=== PATIENT | female | born 1985 | race Caucasian/White ===

== ENCOUNTER → 2021-06-07 13:11 | Outpatient (CLI) | payer OTHER, SELFPAY ==
--- NOTE | 2021-06-07 13:13 | DI.MG.S_ITS ---
BILATERAL DIGITAL DIAGNOSTIC MAMMOGRAM 3D/2D: 06/07/2021 CLINICAL: Left breast pain. Comparison is made to exam dated: 03/12/2021 mammogram - [facility]. The tissue of both breasts is heterogeneously dense. This may lower the sensitivity of mammography. No significant masses, calcifications, or other findings are seen in either breast. Specifically, no finding to explain the patient's pain. IMPRESSION: INCOMPLETE: NEEDS ADDITIONAL IMAGING EVALUATION There is no abnormality seen in the left breast to correspond with the pain at 7 o'clock in the posterior depth. Ultrasound is recommended for full evaluation of this area. This was performed immediately following this exam. This exam was interpreted at Station ID: [id number]. NOTE: For mammograms, a report in lay terms will be sent to the patient. Approximately 15% of breast malignancies will not be visualized mammographically. In the management of a palpable breast mass, a negative mammogram must not discourage biopsy of a clinically suspicious lesion. Electronically Signed By: Clotilde vargas/:06/07/2021 13:59:06 ACR BI-RADS Category 0: Incomplete [id number]
--- NOTE | 2021-06-07 13:13 | DI.US.S_ITS ---
ULTRASOUND OF LEFT BREAST: 06/07/2021 CLINICAL: Focal left breast pain. Comparison is made to exams dated: 06/07/2021 mammogram - [facility] and 03/12/2021 mammogram - [facility]. Ultrasound of the left breast was performed. Vora scale images of the real-time examination were reviewed. No significant abnormalities were seen sonographically in the left breast. Specifically, no finding to explain the patient's pain. IMPRESSION: NEGATIVE There is no sonographic correlate to the patient's pain and no evidence of malignancy. Screening mammography beginning at age 40 is recommended. Findings and recommendations were conveyed to the patient at time of exam. This exam was interpreted at Station ID: [id number]. Electronically Signed By: Clotilde vargas/:06/07/2021 14:54:15 letter sent: Normal Exam Ultrasound BI-RADS: 1 Negative
== END ==
PROVIDERS: Referring Provider Obstetrics & Gynecology; Visit Provider Obstetrics & Gynecology
DX: N64.4 Mastodynia (principal); Z80.3 Family history of malignant neoplasm of breast; R92.2 Inconclusive mammogram
CPT/HCPCS: 76642; 77066; G0279

== ENCOUNTER 2022-05-24 07:53 | Observation (INO) | payer OTHER, SELFPAY ==
[2022-05-24] VITALS (16 sets, daily range): BP systolic 122–164; BP diastolic 64–93; PULSE 75–120; RESP 9–20; TEMP 36.3–36.9; O2SAT 94–100; BMI 41.0
--- NOTE | 2022-05-24 | PATH_ITS ---
[facility] Accession Number: [id number] . 01 Material submitted: . endometrium - ENDOMETRIAL CURETTAGE . 01 Clinical history: . BLEEDING X3 WEEKS, UTERINE BLEEDING LIGHTEDADED, DISORIENTED . 01 Diagnosis: Endometrium, Curettings: Fragmented and collapsing dyssynchronous endometrium with associated breakdown changes. No atypical hyperplasia and no malignancy identified. MRV 05/28/2022 1520 Local . 01 Electronically signed: . Aleksandra Negrete MD, Pathologist NPI- [id number] . 01 Gross description: . ENDOMETRIAL CURETTAGE: Received in formalin are minute fragments of mucoid and hemorrhagic material measuring 2.5 x 2.5 x 0.4 cm in aggregate. Submitted in toto in 2 cassettes. /HANNAH 05/27/2022 1936 Local . 01 Pathologist provided ICD-10: N84.0 . 01 CPT . 847271 Performed at: 01 [facility] [address] [place] [address], [place], [place] [id number] MD Victor M Ag MD Phone: [phone]
--- NOTE | 2022-05-24 08:09 | ED.FEMALEGU ---
HPI - Female Genitourinary General Chief complaint: Vaginal Bleeding Stated complaint: uterine bleeding, lightheaded, disoriented Time Seen by Provider: 05/24/22 08:06 History of Present Illness HPI Narrative: 36-year-old female former smoker with recent heavy painless menstrual cycles presents with a chief complaint of very heavy bleeding over the past 24 hours, stating this morning she has overflow own her menstrual cup and soaked through an overnight pad and feels dizzy, weak and lightheaded. She has no pain maybe occasional cramping. She denies any fever or chills. She has no chest pain or shortness of breath. She becomes dizzy upon standing with heart rate jumps into the 120s. She has been followed by local Ob and there is plan for hysteroscopy, D&C and biopsy but they wanted to try a course of medroxyprogesterone 1st. She was intolerant of this and stop taking it a few days ago. She states she started having irregular menstrual cycles over the summer and they become increasingly long. Related Data Previous Rx's Medication Instructions Recorded medroxyprogesterone 10 mg tablet 10 mg PO DAILY Abnormal uterine 05/06/22 bleeding #30 tabs Allergies Allergy/AdvReac Type Severity Reaction Status Date / Time sulfamethoxazole Allergy Intermediate hives Verified 05/21/21 10:25 [From Bactrim] trimethoprim [From Bactrim] Allergy Intermediate hives Verified 05/21/21 10:25 Review of Systems Review of Systems Narrative: GENERAL: Denies chills, fatigue, malaise, fever, sweats. HEENT: Denies sinus pain, ear pain, sore throat, difficulty swallowing, dizziness. RESPIRATORY: Denies dyspnea, cough, wheezing, hemoptysis, sputum. CARDIOVASCULAR: Denies chest pain, palpitations, orthopnea, edema, GASTROINTESTINAL: Denies nausea, vomiting, abdominal pain, diarrhea, constipation, melena. : See HPI MUSCULOSKELETAL: denies weakness, joint pain, or bony pain SKIN: Denies rash, skin lesions, or other NEUROLOGIC: Denies weakness, headache, numbness, change in speech, confusion, seizures, incoordination. PSYCHIATRIC: No concerning psychosocial issues. 12 point review of systems is negative except for those stated above Patient History Medical History (Updated 05/24/22 @ 12:59 by Phyllis Skinner MD) Depression Exam Narrative Exam Narrative: GENERAL: [36] year old patient appears stated age. Well-developed patient, in mild distress. HEAD: Atraumatic. Normocephalic. EYES: Pupils equal round and reactive. Extraocular motions intact. No scleral icterus. No injection or drainage. ENT: Nose without bleeding, purulent drainage. Throat without erythema, tonsillar hypertrophy or exudate. Airway patent. NECK: Trachea midline. Non tender CARDIOVASCULAR: Regular rate and rhythm without murmurs, gallops, or rubs. RESPIRATORY: Clear to auscultation. Breath sounds equal bilaterally. No wheezes, rales, or rhonchi. GASTROINTESTINAL: Abdomen soft, non-tender, nondistended. EXTREMITIES: No edema or joint tenderness. BACK: Nontender without deformity or crepitance. No flank tenderness. NEURO: AOx3. SKIN: No rash or erythema of visible areas Initial Vital Signs Initial Vital Signs: Vital Signs Temperature 98.4 F 05/24/22 08:10 Pulse Rate 96 H 05/24/22 08:10 Respiratory Rate 18 05/24/22 08:10 Blood Pressure 140/82 05/24/22 08:10 Pulse Oximetry 100 05/24/22 08:10 Oxygen Delivery Method 05/24/22 08:10 Course Orders Ordered: ED Orders 05/24/22 08:15 Complete Blood Count AUTO DIFF Stat Comprehensive Metabolic Panel Stat Test Serum,Qual Stat Type and Screen Stat 05/24/22 08:31 Urinalysis and Microscopic Stat 05/24/22 09:02 US pelvic complete Stat 05/24/22 10:36 Hemoglobin and Hematocrit Stat 05/24/22 12:39 COVID19 -Nasal RAPID/Pre-Proc Stat Lactated Ringer's (Lactated Ringers) 1,000 mls @ 100 mls/hr IV CONT PALLAVI Last Admin: 05/24/22 13:19 Dose: 100 mls/hr Documented By: KATLIN Discontinued Medications Tranexamic Acid 1,000 mg/ (Sodium Chloride) 100 mls @ 200 mls/hr IV NOW ONE Stop: 05/24/22 12:30 Last Infusion: 05/24/22 13:12 Dose: 0 mls/hr Documented By: Admin: 05/24/22 12:24 Dose: 200 mls/hr Documented By: PILY Methylergonovine Maleate (Methylergonovine 0.2 Mg/Ml Vial) 0.2 mg IM NOW ONE Stop: 05/24/22 12:02 Last Admin: 05/24/22 12:23 Dose: 0.2 mg Documented By: PILY Vital Signs Vital signs: Vital Signs - 8 hr 05/24/22 08:10 05/24/22 08:33 05/24/22 08:11 Temperature 98.4 F Pulse Rate 96 H 100 H Pulse Rate [Orthostatic Lying] 96 H Pulse Rate [Orthostatic Standing] 120 H Respiratory Rate 18 Blood Pressure 140/82 Pulse Oximetry 100 99 Oxygen Delivery Method Room Air 05/24/22 08:15 05/24/22 08:15 05/24/22 08:36 Temperature Pulse Rate 90 Pulse Rate [Orthostatic Lying] Pulse Rate [Orthostatic Standing] Respiratory Rate 16 Blood Pressure 140/82 139/87 Pulse Oximetry 100 Oxygen Delivery Method 05/24/22 08:36 05/24/22 09:00 05/24/22 09:00 Temperature Pulse Rate 84 78 Pulse Rate [Orthostatic Lying] Pulse Rate [Orthostatic Standing] Respiratory Rate 15 Blood Pressure 140/82 Pulse Oximetry 98 100 Oxygen Delivery Method 05/24/22 09:30 05/24/22 09:30 05/24/22 10:00 Temperature Pulse Rate 75 Pulse Rate [Orthostatic Lying] Pulse Rate [Orthostatic Standing] Respiratory Rate 15 Blood Pressure 132/79 143/64 H Pulse Oximetry 99 Oxygen Delivery Method 05/24/22 10:00 Temperature Pulse Rate 77 Pulse Rate [Orthostatic Lying] Pulse Rate [Orthostatic Standing] Respiratory Rate 17 Blood Pressure Pulse Oximetry 100 Oxygen Delivery Method MDM - Female Genitourinary Lab Data Result diagrams: 05/24/22 10:36 05/24/22 08:15 Labs: Lab Results 05/24/22 05/24/22 05/24/22 Range/Units 08:15 08:15 08:15 WBC 7.4 (4.5-11.0) X10^3/uL RBC 3.60 L (4.0-5.2) X10^6/uL Hgb 8.2 L (12.0-16.0) g/dL Hct 25.5 L (36-46) % MCV 70.9 L (80-100) fL MCH 22.7 L (26-34) PG MCHC 32.0 (30-36) % RDW 15.3 H (11.6-14.8) % Plt Count 385 (150-400) X10^3/uL Neut % (Auto) 68.1 (50-75) % Lymph % (Auto) 23.8 L (25-40) % [place] % (Auto) 6.6 (3-14) % Eos % (Auto) 1.0 L (2-4) % Baso % (Auto) 0.5 (0-2) % Neut # (Auto) 5100 (2270-1589) /uL Lymph # (Auto) 1800 (3080-9878) /uL [place] # (Auto) 500 (0-900) /uL Eos # (Auto) 100 (0-450) /uL Baso # (Auto) 0 (0-100) /uL Sodium 137 (137-145) mmol/L Potassium 3.6 (3.4-5.1) mmol/L Chloride 103 (98-107) mmol/L Carbon Dioxide 26 (22-32) mmol/L BUN 13 (7-17) mg/dL Creatinine 0.75 (0.52-1.04) mg/dL Estimated GFR > 60 (>60) mL/min BUN/Creatinine Ratio 17.3 (6-22) Glucose 102 H (70-100) mg/dL Calcium 8.7 (8.4-10.2) mg/dL Total Bilirubin 0.2 (0.2-1.3) mg/dL AST 16 (14-36) IU/L ALT 16 (<35) IU/L Alkaline Phosphatase 104 (38-126) U/L Total Protein 7.6 (6.3-8.2) g/dL Albumin 4.1 (3.5-5.0) g/dL Globulin 3.5 (1.7-4.1) g/dL Albumin/Globulin Ratio 1.2 (1.0-2.8) Serum , Qual (Negative) Urine Color Urine Appearance Urine pH (4.5-8.0) Ur Specific [place] (1.000-1.035) Urine Protein (Negative) Urine Glucose (UA) (Negative) g/dL Urine Ketones (NEGATIVE) Urine Occult Blood (Negative) Urine Nitrate (Negative) Urine Bilirubin (NEGATIVE) Urine Urobilinogen (0.2) E.U./dL Ur Leukocyte Esterase (NEGATIVE) Urine RBC (0-5/HPF) Urine WBC (0-5/HPF) Ur Squamous Epith Cells (0-5/HPF) Urine Bacteria (None) Ur Culture Indicated? Blood Type B Positive Antibody Screen Negative 05/24/22 05/24/22 05/24/22 Range/Units 08:15 08:31 10:36 WBC (4.5-11.0) X10^3/uL RBC (4.0-5.2) X10^6/uL Hgb 8.0 L (12.0-16.0) g/dL Hct 24.8 L (36-46) % MCV (80-100) fL MCH (26-34) PG MCHC (30-36) % RDW (11.6-14.8) % Plt Count (150-400) X10^3/uL Neut % (Auto) (50-75) % Lymph % (Auto) (25-40) % [place] % (Auto) (3-14) % Eos % (Auto) (2-4) % Baso % (Auto) (0-2) % Neut # (Auto) (2981-7650) /uL Lymph # (Auto) (4116-1852) /uL [place] # (Auto) (0-900) /uL Eos # (Auto) (0-450) /uL Baso # (Auto) (0-100) /uL Sodium (137-145) mmol/L Potassium (3.4-5.1) mmol/L Chloride (98-107) mmol/L Carbon Dioxide (22-32) mmol/L BUN (7-17) mg/dL Creatinine (0.52-1.04) mg/dL Estimated GFR (>60) mL/min BUN/Creatinine Ratio (6-22) Glucose (70-100) mg/dL Calcium (8.4-10.2) mg/dL Total Bilirubin (0.2-1.3) mg/dL AST (14-36) IU/L ALT (<35) IU/L Alkaline Phosphatase (38-126) U/L Total Protein (6.3-8.2) g/dL Albumin (3.5-5.0) g/dL Globulin (1.7-4.1) g/dL Albumin/Globulin Ratio (1.0-2.8) Serum , Qual Negative (Negative) Urine Color Yellow Urine Appearance Clear Urine pH 5.5 (4.5-8.0) Ur Specific [place] >=1.030 H (1.000-1.035) Urine Protein 1+ H (Negative) Urine Glucose (UA) Negative (Negative) g/dL Urine Ketones Negative (NEGATIVE) Urine Occult Blood 3+ H (Negative) Urine Nitrate Negative (Negative) Urine Bilirubin Negative (NEGATIVE) Urine Urobilinogen 0.2 (0.2) E.U./dL Ur Leukocyte Esterase Negative (NEGATIVE) Urine RBC 30-100/hpf H (0-5/HPF) Urine WBC None seen (0-5/HPF) Ur Squamous Epith Cells 1-5 /hpf (0-5/HPF) Urine Bacteria None seen (None) Ur Culture Indicated? 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 Allergy/Adv: sulfamethoxazole, trimethoprim (More??) Close Pelvis Ultrasound (Signed) Hair Bethea - 05/24/22 Mammogram Diagnostic (Signed) Clotilde Cool - 06/07/21 Breast Ultrasound (Signed) Clotilde Cool - 06/07/21 [place] [address] Ultrasound Report Signed Patient: Kiara Roach MR#: [id number] : 1985 Acct:[id number] Age/Sex: 36 / F Date of Service: 05/24/22 Loc: ED Accession Number: [id number] ?? Procedure: US pelvic complete Ordering Provider: Shaheen Munguia D.O. PROCEDURE:? US PELVIC COMPLETE ? INDICATIONS:? HEAVY BLEEDING ? TECHNIQUE:? Real-time scanning was performed of the pelvic organs, with image documentation.? Additional endovaginal scanning was necessary due to incomplete visualization of the adnexal and endometrial structures by transabdominal scanning.? ? COMPARISON:? None. ? FINDINGS:? ?? Uterus:? Uterus is retroverted and normal in size at 8.1 x 4.9 x 4.8 cm. The myometrium is heterogeneous.? Globular appearance.? The endometrium measures 11 mm combined thickness.? Fluid is within the endometrial canal.? Endometrium is heterogeneous in appearance. ? Ovaries:? Right ovary measures 4.3 x 3 x 2.1 cm, with a calculated ovarian volume of 14 cc.? The small ovarian follicles are present.? Blood flow seen in the right ovary. ? At the right adnexa, there is incidental note of a right adnexal vein thrombus measuring 1.4 x 0.8 x 0.7 cm. ? Left ovary is not seen.? ? Other:? Bilateral pelvic veins are prominent.? Right pelvic vein measures 1.5 cm in diameter.? Left pelvic vein measures 1.5 cm in diameter.? Pelvic fluid is within normal limits. ? ? IMPRESSION:? 1. Heterogeneous endometrium measures 11 mm in thickness.? ? 2. Lobular heterogeneous appearance of the retroverted uterus.? This suggests uterine adenomyosis. ? 3. Incidental note of a right adnexal vein thrombus measuring 1.4 cm. ? 4. Right ovary is within normal limits.? The left ovary is not seen.? ? Pelvic MRI with IV contrast could be considered for further evaluation. ? We strive to produce accurate, complete, and clear reports of imaging services. To assist us in improving patient care, this report was composed using standard report templates and voice recognition software. Therefore, it may contain abnormal punctuation, insertions and/or omissions. Occasional wrong-word or sound-alike substitutions may occur. Though we review the report and make efforts to correct it, we do recommend that the report be read carefully in proper context to recognize any text inaccuracies. ? ? Dictated by: Hair Bethea M.D. on 05/24/2022 at 10:09 ? ? Approved by: Hair Bethea M.D. on 05/24/2022 at 10:15 ? MDM Narrative Medical decision making narrative: Patient with increasing vaginal bleeding and symptomatic anemia. Patient will be seen at the bedside by OB Gyne (Dr. Skinner) and likely take to the OR for D and C Discharge Plan Departure Patient Disposition: Admitted as Observation Clinical Impression: Abnormal vaginal bleeding Admit Date/Time: 05/24/22 12:42 Admit Provider: Phyllis Skinner
[2022-05-24 08:40] LABS: Add Manual Diff / Slide Review NO; Basophils Absolute Auto 0 /uL (0-100); Basophils Percent Auto 0.5 % (0-2); Eosinophils Absolute Auto 100 /uL (0-450); Hematocrit 25.5 % (36-46); Hemoglobin 8.2 g/dL (12.0-16.0); Lymphocytes Absolute Auto 1800 /uL (1100-4500); Lymphocytes Percent Auto 23.8 % (25-40); Mean Corpuscular Hemoglobin 22.7 PG (26-34); Mean Corpuscular Volume 70.9 fL (80-100); Monocytes Absolute Auto 500 /uL (0-900); Monocytes Percent Auto 6.6 % (3-14); Neutrophils Absolute Auto 5100 /uL (1500-7000); Neutrophils Percent Auto 68.1 % (50-75); Platelet Count 385 X10^3/uL (150-400); Red Cell Distribution Width 15.3 % (11.6-14.8); White Blood Cell Count 7.4 X10^3/uL (4.5-11.0)
[2022-05-24 08:53] LABS: Alanine Aminotransferase 16 IU/L (<35); Albumin 4.1 g/dL (3.5-5.0); Albumin Globulin Ratio 1.2 (1.0-2.8); Alkaline Phosphatase 104 U/L (38-126); Aspartate Aminotransferase 16 IU/L (14-36); BUN Creatinine Ratio 17.3 (6-22); Bilirubin Total 0.2 mg/dL (0.2-1.3); Blood Urea Nitrogen 13 mg/dL (7-17); Calcium 8.7 mg/dL (8.4-10.2); Carbon Dioxide 26 mmol/L (22-32); Chloride 103 mmol/L (98-107); Estimated Glomerular Filt Rate > 60 mL/min (>60); Globulin 3.5 g/dL (1.7-4.1); Glucose 102 mg/dL (70-100); HEMOLYSIS < 15 (0-50); Potassium 3.6 mmol/L (3.4-5.1); Sodium 137 mmol/L (137-145); Total Protein 7.6 g/dL (6.3-8.2)
[2022-05-24 08:54] LABS: Appearance Urine UA CLEAR; Bilirubin Urine UA NEGATIVE (NEGATIVE); Color Urine UA YELLOW; Glucose Urine UA NEGATIVE (Negative); Ketones Urine UA NEGATIVE (NEGATIVE); Leukocyte Esterase Urine UA NEGATIVE (NEGATIVE); Nitrite Urine UA NEGATIVE (Negative); Occult Blood Urine UA 3+ (Negative); Protein Urine UA 1+ (Negative); Specific Gravity Urine UA >=1.030 (1.000-1.035); Urobilinogen Urine UA 0.2 E.U./dL (0.2)
--- NOTE | 2022-05-24 09:02 | DI.US.S_ITS ---
PROCEDURE: US PELVIC COMPLETE INDICATIONS: HEAVY BLEEDING TECHNIQUE: Real-time scanning was performed of the pelvic organs, with image documentation. Additional endovaginal scanning was necessary due to incomplete visualization of the adnexal and endometrial structures by transabdominal scanning. COMPARISON: None. FINDINGS: Uterus: Uterus is retroverted and normal in size at 8.1 x 4.9 x 4.8 cm. The myometrium is heterogeneous. Globular appearance. The endometrium measures 11 mm combined thickness. Fluid is within the endometrial canal. Endometrium is heterogeneous in appearance. Ovaries: Right ovary measures 4.3 x 3 x 2.1 cm, with a calculated ovarian volume of 14 cc. The small ovarian follicles are present. Blood flow seen in the right ovary. At the right adnexa, there is incidental note of a right adnexal vein thrombus measuring 1.4 x 0.8 x 0.7 cm. Left ovary is not seen. Other: Bilateral pelvic veins are prominent. Right pelvic vein measures 1.5 cm in diameter. Left pelvic vein measures 1.5 cm in diameter. Pelvic fluid is within normal limits. IMPRESSION: 1. Heterogeneous endometrium measures 11 mm in thickness. 2. Lobular heterogeneous appearance of the retroverted uterus. This suggests uterine adenomyosis. 3. Incidental note of a right adnexal vein thrombus measuring 1.4 cm. 4. Right ovary is within normal limits. The left ovary is not seen. Pelvic MRI with IV contrast could be considered for further evaluation. We strive to produce accurate, complete, and clear reports of imaging services. To assist us in improving patient care, this report was composed using standard report templates and voice recognition software. Therefore, it may contain abnormal punctuation, insertions and/or omissions. Occasional wrong-word or sound-alike substitutions may occur. Though we review the report and make efforts to correct it, we do recommend that the report be read carefully in proper context to recognize any text inaccuracies. Dictated by: Hair Bethea M.D. on 05/24/2022 at 10:09 Approved by: Hair Bethea M.D. on 05/24/2022 at 10:15
[2022-05-24 09:26] LABS: pH Urine UA 5.5 (4.5-8.0)
[2022-05-24 10:47] LABS: Pregnancy Test Serum,Qual Negative (Negative)
[2022-05-24 10:49] LABS: Hematocrit 24.8 % (36-46)
[2022-05-24 11:49] LABS: Bacteria Urine None Seen; Culture Indicated Urine Cult Not Indicated; RBC Urine 30-100/HPF (0-5/HPF); Squamous Epithelial Cell Urine 1-5 /HPF (0-5/HPF); WBC Urine None Seen (0-5/HPF)
[2022-05-24] MEDS: METHYLERGONOVINE 0.2 MG/ML VIAL IM (12:23)
[2022-05-24] MEDS: TRANEXAMIC ACID 1,000 MG in SODIUM CHLORIDE 0.9% 100 ML 200 MG IV (12:24)
--- NOTE | 2022-05-24 12:54 | PM.HP.1 ---
History of Present Illness History of Present Illness Date Patient Seen: 05/24/22 Time Patient Seen: 12:54 Chief complaint: uterine bleeding, lightheaded, disoriented Narrative: Patient is a 36-year-old 2 para 2001 who presented to the emergency department with bright red vaginal bleeding. She was seen by Dr. Man and was placed on progesterone. Patient was taking 10 mg once a day for 10 days. She did not quite take the full course, as she did not like how that made her feel. She was getting on the OR schedule for a D&C hysteroscopy and possible ablation. She would like to proceed with this today. Hematocrit on admission was 25.7. It dropped to 24.6. She continues to bleed heavily vaginally. Patient History Medical History (Updated 05/24/22 @ 12:59 by Phyllis Skinner MD) Depression Family & Social History Safety & Behavioral: Feels Safe in Current Yes Environment Been Physically Hurt or No Threatened By a Person Tobacco & Substance use: Smoking Status Former smoker alcohol intake frequency a few times a month Substance Use Type does not use Meds Home Medications and Allergies Home Medications Medication Instructions Recorded Confirmed Type medroxyprogesterone 10 mg tablet 10 mg PO DAILY Abnormal uterine 05/06/22 05/24/22 Rx bleeding #30 tabs ferrous sulfate 324 mg (65 mg 324 mg PO QMWF 05/24/22 05/24/22 History iron) tablet,delayed release fluoxetine 20 mg capsule 20 mg PO DAILY 05/24/22 05/24/22 History Allergies Allergy/AdvReac Type Severity Reaction Status Date / Time sulfamethoxazole Allergy Intermediate hives Verified 05/24/22 14:00 [From Bactrim] trimethoprim [From Bactrim] Allergy Intermediate hives Verified 05/24/22 14:00 Exam Vital Signs (past 8 hours): - 05/24/22 08:10 05/24/22 08:33 05/24/22 08:11 Temperature 98.4 F Pulse Rate 96 H 100 H Pulse Rate [Orthostatic Lying] 96 H Pulse Rate [Orthostatic Standing] 120 H Respiratory Rate 18 Blood Pressure 140/82 Pulse Oximetry 100 99 Oxygen Delivery Method Room Air 05/24/22 08:15 05/24/22 08:15 05/24/22 08:36 Temperature Pulse Rate 90 Pulse Rate [Orthostatic Lying] Pulse Rate [Orthostatic Standing] Respiratory Rate 16 Blood Pressure 140/82 139/87 Pulse Oximetry 100 Oxygen Delivery Method 05/24/22 08:36 05/24/22 09:00 05/24/22 09:00 Temperature Pulse Rate 84 78 Pulse Rate [Orthostatic Lying] Pulse Rate [Orthostatic Standing] Respiratory Rate 15 Blood Pressure 140/82 Pulse Oximetry 98 100 Oxygen Delivery Method 05/24/22 09:30 05/24/22 09:30 05/24/22 10:00 Temperature Pulse Rate 75 Pulse Rate [Orthostatic Lying] Pulse Rate [Orthostatic Standing] Respiratory Rate 15 Blood Pressure 132/79 143/64 H Pulse Oximetry 99 Oxygen Delivery Method 05/24/22 10:00 05/24/22 12:44 05/24/22 12:44 Temperature Pulse Rate 77 90 Pulse Rate [Orthostatic Lying] Pulse Rate [Orthostatic Standing] Respiratory Rate 17 Blood Pressure 164/91 H Pulse Oximetry 100 Oxygen Delivery Method Oxygen Delivery Method Room Air Narrative Exam Narrative: HEENT: No thyromegaly, no anterior cervical or supraclavicular lymphadenopathy. Lungs:Clear to auscultation bilaterally, no wheezes. Cardiovascular: Regular rate and rhythm, no murmurs, rubs, or gallops. Abdomen: No scars. No hepatosplenomegaly. No masses palpable. External genitalia: Normal Vagina: Normal. Menstrual cup in place. Cervix: Normal Bimanual exam: 8 Week size uterus. Mobile. No adnexal masses or tenderness. Extremities: No edema Objective Labs Result Diagrams: 05/24/22 10:36 05/24/22 08:15 Labs: Laboratory Results - last 24 hr 05/24/22 05/24/22 05/24/22 08:15 08:15 08:15 WBC 7.4 RBC 3.60 L Hgb 8.2 L Hct 25.5 L MCV 70.9 L MCH 22.7 L MCHC 32.0 RDW 15.3 H Plt Count 385 Neut % (Auto) 68.1 Lymph % (Auto) 23.8 L [place] % (Auto) 6.6 Eos % (Auto) 1.0 L Baso % (Auto) 0.5 Neut # (Auto) 5100 Lymph # (Auto) 1800 [place] # (Auto) 500 Eos # (Auto) 100 Baso # (Auto) 0 Sodium 137 Potassium 3.6 Chloride 103 Carbon Dioxide 26 BUN 13 Creatinine 0.75 Estimated GFR > 60 BUN/Creatinine Ratio 17.3 Glucose 102 H Calcium 8.7 Total Bilirubin 0.2 AST 16 ALT 16 Alkaline Phosphatase 104 Total Protein 7.6 Albumin 4.1 Globulin 3.5 Albumin/Globulin Ratio 1.2 Serum , Qual Urine Color Urine Appearance Urine pH Ur Specific [place] Urine Protein Urine Glucose (UA) Urine Ketones Urine Occult Blood Urine Nitrate Urine Bilirubin Urine Urobilinogen Ur Leukocyte Esterase Urine RBC Urine WBC Ur Squamous Epith Cells Urine Bacteria Ur Culture Indicated? Blood Type B Positive Antibody Screen Negative 05/24/22 05/24/22 05/24/22 08:15 08:31 10:36 WBC RBC Hgb 8.0 L Hct 24.8 L MCV MCH MCHC RDW Plt Count Neut % (Auto) Lymph % (Auto) [place] % (Auto) Eos % (Auto) Baso % (Auto) Neut # (Auto) Lymph # (Auto) [place] # (Auto) Eos # (Auto) Baso # (Auto) Sodium Potassium Chloride Carbon Dioxide BUN Creatinine Estimated GFR BUN/Creatinine Ratio Glucose Calcium Total Bilirubin AST ALT Alkaline Phosphatase Total Protein Albumin Globulin Albumin/Globulin Ratio Serum , Qual Negative Urine Color Yellow Urine Appearance Clear Urine pH 5.5 Ur Specific [place] >=1.030 H Urine Protein 1+ H Urine Glucose (UA) Negative Urine Ketones Negative Urine Occult Blood 3+ H Urine Nitrate Negative Urine Bilirubin Negative Urine Urobilinogen 0.2 Ur Leukocyte Esterase Negative Urine RBC 30-100/hpf H Urine WBC None seen Ur Squamous Epith Cells 1-5 /hpf Urine Bacteria None seen Ur Culture Indicated? Cult not indicated Blood Type Antibody Screen Assessment & Plan Assessment & Plan narrative: Assessment: 36-year-old 2 para 2 with menorrhagia and significant anemia Plan: D&C hysteroscopy with NovaSure endometrial ablation The risks, benefits, and alternatives to the procedure were explained to the patient. The risks including bleeding, infection, and uterine perforation. She understands these risks and agrees to proceed. A full par Q was held and consent form was signed. COVID-19 COVID-19 status: Negative Result date/Date tested (Pos, Neg/Pending): 05/24/22 Time Spent With Patient Time with patient: 30 to 49 minutes with 50% spent counseling/coordinating care Critical Care time: I spent a total of [] minutes of critical care time on this patient's care today; this time is exclusive of procedural time.
--- NOTE | 2022-05-24 12:58 | PM.PREOP ---
Pre-operative Note COVID-19 COVID-19 status: Negative Result date/Date tested (Pos, Neg/Pending): 05/24/22 Criteria for continued procedure: Deterioration of the patient's condition or overall health Interval Note History & Physical reviewed/Exam performed by Physician: Yes Changes to H&P: No H&P completed within 30 days and has changed as indicated here:: 05/24/22
[2022-05-24] MEDS: LACTATED RINGERS 1,000 ML 100 ML IV (13:19)
[2022-05-24 13:33] LABS: COVID19 -Nasal RAPID Negative (Negative)
--- NOTE | 2022-05-24 14:33 | SUR.OPER ---
Lithotomy on padded OR bed, head on pillow, arms secured on padded arm boards at <90 degrees abduction. Legs secured in padded yellow fins stirrups.
--- NOTE | 2022-05-24 14:53 | PM.GYNOP.1 ---
Operative Date/Time/Diagnoses Date of procedure: 05/24/22 Time of procedure: 14:53 Pre-op diagnosis: Menorrhagia Severe anemia Failed outpatient hormonal therapy Post-op diagnosis: same Procedure & Clinicians Procedure: Procedures Operation Date: 05/24/22 13:40 Actual Procedure Side Surgeon p Hysteroscopy D&C Phyllis Skinner MD Indications: Menorrhagia Severe anemia Failed outpatient hormonal therapy Surgeon: Phyllis Skinner Anesthesia Type: General (LMA) Operative Notes Findings: 8 week size anteverted uterus Very thickened endometrial lining Fallopian tube ostia not observed due to thickened lining Closure Type: not applicable Specimen(s): endometrial curettings Estimated blood loss (mL): 50 Blood products transfused: none Procedure in detail: After informed consent was obtained, the patient was taken to the operating room where she was placed in the dorsal supine position. After adequate LMA general anesthesia was achieved, she was placed in the dorsal lithotomy position. The menstrual cup was removed from the vagina. She was then prepped and draped in the usual sterile fashion. A time-out was performed. A bivalve speculum was placed into the vagina. A single-tooth tenaculum was placed on the anterior lip of the cervix. The cervical os was sequentially dilated until the hysteroscope could pass easily into the endometrial cavity. Initial inspection with the hysteroscope revealed a very thickened endometrial lining. The fallopian tube ostia could not be observed. The hysteroscope was removed. Sharp curettage was performed yielding a large amount of endometrial curettings. The uterus was measured from the internal os to the fundus and measured 5 cm. This was set on the NovaSure catheter and the generator. NovaSure catheter passed easily into the endometrial cavity and was opened. The with of the uterus was 4.2 cm. This indicated a power of 116 w. The cervix was capped, the cavity assessment was performed and passed. The cycle was initiated and lasted 52 seconds. The NovaSure catheter was closed and removed from the uterus. The single-tooth tenaculum was removed from the anterior lip of the cervix. The bivalve speculum was removed from the vagina. Sponge, lap, and instrument counts were correct x2. The patient tolerated the procedure well, and was taken to PACU in stable condition. Complications: none Post-operative Condition: stable Disposition: PACU Plan for aftercare: Home after recovery
== END 2022-05-24 15:30 | disposition home or self-care (01) ==
LOC: ED 12:40 → AC 12:44
PROVIDERS: Admitting Provider Obstetrics & Gynecology; Emergency Provider Emergency Medicine; Referring Provider Emergency Medicine; Visit Provider Obstetrics & Gynecology
PROC: 0UDB8ZZ Extraction of Endometrium, Via Natural or Artificial Opening Endoscopic (ICD-10-PCS; CPT 58558; principal; 2022-05-24 13:40)
DX: N93.9 Abnormal uterine and vaginal bleeding, unspecified (principal); F32.A Depression, unspecified; D64.9 Anemia, unspecified; Z20.822 Contact with and (suspected) exposure to COVID-19
CPT/HCPCS: 58563; 36415; 76830; 76856; 80053; 81001; 84703; 85014; 85018; 85025; 86850; 86900; 86901; 87635; 96361; 96365; 96372; 99218; 99284; C9803; G0378; J1100; J1885; J2210; J2250; J2405; J2704; J3010

== ENCOUNTER 2022-09-18 08:08 | Day surgery (SDC) | payer OTHER, SELFPAY ==
[2022-09-16 08:10] VITALS: BMI 43.2
[2022-09-18] VITALS (8 sets, daily range): BP systolic 131–155; BP diastolic 75–100; PULSE 70–97; RESP 13–17; TEMP 36.7–37.3; O2SAT 90–100; BMI 43.2
--- NOTE | 2022-09-18 | PATH_ITS ---
[facility] Accession Number: [id number] No. of containers..01 Tissue . 01 Material submitted: . uterus - UTERUS, BILATERAL TUBES . 01 Clinical history: . [facility] *OPB* . 01 Diagnosis: Uterus and Bilateral Fallopian Tubes, Supracervical Hysterectomy and Bilateral Salpingectomy: Weakly proliferative endometrium with no diagnostic abnormality. Myometrium with no diagnostic abnormality. Bilateral fimbriated fallopian tubes with simple benign paratubal cysts. No evidence of neoplasm. [facility] 09/23/2022 1708 Local . 01 Electronically signed: . Rakesh Wesley MD, PhD, Pathologist NPI- [id number] . 01 Gross description: . Received in formalin labeled uterus, tubes is a 67 gram, 9.5 x 9.0 x 3.5 cm aggregate of multiple fragmented portions of uterus and separate bilateral fallopian tubes. The cervix is not grossly identified. The intact portions of serosa are pink-fofana, smooth and glistening. The endometrium is difficult to identify due to the fragmented nature of the specimen. There are two separate surfaces which are pink-fofana and roughened, possibly representing endometrium. Sectioning of this area reveals that the endometrium ranges up to 0.2 cm thick. The myometrium reveals a uniform pink-fofana cut surface throughout. There are no nodules grossly identified. The tubes are not designated as to right or left. Both tubes are fimbriated and measure 5.3 cm and 5.7 cm in length x up to 0.7 cm in diameter. Both tubes are remarkable for paratubal cysts, ranging up to 1.5 cm. The tubes are slightly congested and convoluted. Sectioning of both tubes reveals a stellate lumen. Boiler Control Room Operator sections are submitted as follows: . A1-A2: Endomyometrium. A3: Perkins fallopian tube. A4: Remaining fallopian tube. ([id number]) /[facility] 09/19/2022 1855 Local . 01 Pathologist provided ICD-10: N93.9 . 01 CPT . 971029 Specimen Comment: A courtesy copy of this report has been sent to [phone] Performed at: 01 [facility] [address] [place] [address] [facility], [place], [place] [id number] MD Victor M Ag MD Phone: [phone]
[2022-09-18 08:37] LABS: COVID19 -Nasal RAPID Negative (Negative)
[2022-09-18] MEDS: SCOPOLAMINE 1 PATCH TOP (09:30)
[2022-09-18] MEDS: LACTATED RINGERS 1,000 ML 42 ML IV ×2 (09:31→13:40)
--- NOTE | 2022-09-18 11:58 | PM.PREOP ---
Pre-operative Note COVID-19 Criteria for continued procedure: Non-surgical alternatives not available or appropriate per current SOC Interval Note History & Physical reviewed/Exam performed by Physician: Yes Changes to H&P: No H&P completed within 30 days and has changed as indicated here:: 09/10/22
[2022-09-18] MEDS: CEFAZOLIN 2 GM/100 ML PREMIX 100 ML IV (12:00)
[2022-09-18] MEDS: CEFAZOLIN VIAL 1 GM in SODIUM CHLORIDE 0.9% 100 ML IV (12:00)
[2022-09-18] MEDS: ACETAMINOPHEN IV 1,000 MG/100 ML VIAL 400 MG IV (12:10)
--- NOTE | 2022-09-18 12:45 | SUR.OPER ---
Lithotomy on padded OR bed, head on pillow, arms secured on padded arm boards at <90 degrees abduction. Legs secured in padded yellow fins stirrups. Bed extenders placed on both sides of bed to accomodate arms
--- NOTE | 2022-09-18 12:47 | SUR.OPER ---
Lithotomy on padded OR bed. Tome Pad Positioner under torso. Head on pillow, arms padded and tucked at sides. Legs secured in padded yellow fins stirrups. Arms padded and placed on bed extenders
[2022-09-18] MEDS: BUPIVACAINE 0.5% W/ EPI (PF) 30 ML VIAL INJ (13:01)
[2022-09-18] MEDS: ROPIVACAINE 0.2% PF 2 MG/ML 20ML AMP 20 ML INJ (13:42)
[2022-09-18] MEDS: ONDANSETRON 4 MG/2 ML INJ IV (15:05)
[2022-09-18] MEDS: KETOROLAC 30 MG/ML VIAL IV (15:05)
[2022-09-18] MEDS: OXYCODONE IR 5 MG TABLET PO (15:06)
--- NOTE | 2022-09-18 15:08 | SUR.PHASEII ---
Called Dr Skinner in OR #2. See new order for Toradol IV 30mg . Read-back done.
--- NOTE | 2022-09-18 16:03 | PM.GYNOP.1 ---
Operative Date/Time/Diagnoses Date of procedure: 09/18/22 Time of procedure: 14:30 Pre-op diagnosis: Abnormal uterine bleeding Status post endometrial ablation Post-op diagnosis: same Procedure & Clinicians Procedure: Procedures Operation Date: 09/18/22 09:45 Actual Procedure Side Surgeon p Laparoscopic Supracervical Hysterectomy & bilateral salpingectomy Phyllis Skinner MD Indications: Abnormal uterine bleeding s/p endometrial ablation Surgeon: Phyllis Skinner Erosion Control Specialist: Ingrid Centeno Anesthesia Type: General and Local Operative Notes Findings: 8 week size anteverted uterus 4 cm left ovarian cyst Normal right tube and ovary Normal left tube Normal liver, gallbladder and appendix Closure Type: primary Specimen(s): left tube, right tube and other (fluid from left ovarian cyst) Applied: catheter (Removed at the end of the case) Estimated blood loss (mL): 50 Blood products transfused: none Procedure in detail: The patient was taken to the operating room where she was placed in the dorsal supine position. After adequate general endotracheal anesthesia was achieved, she was placed in the dorsal lithotomy position, and prepped and draped in the usual sterile fashion. A timeout was performed. A bivalve speculum was placed into the vagina and the anterior lip of the cervix grasped with a single-tooth tenaculum. The cervical os was sequentially dilated until the ZUMI uterine manipulator could pass easily into the endometrial cavity. The single-tooth tenaculum was removed from the anterior lip of the cervix, and the bivalve speculum was removed from the vagina. Attention was then turned to the abdomen where 6 mL of half percent Marcaine with epinephrine were injected in the umbilical fold. A 5 mm incision was made. The Verees needle was placed into the peritoneal cavity, and its placement confirmed by aspiration and drop test. The Verees needle was removed. A 5 mm trocar was placed without difficulty. 2 other incisions were made 4 cm lateral to the umbilicus after 5 mL of half percent Marcaine with epinephrine were injected. These were 5 mm incisions. Two 5 mm trocars were placed under direct visualization. The right tube was grasped with an atraumatic grasper. Using the Powerseal, the mesosalpinx was cauterized and cut all the way down to the cornua of the uterus. The cornua of the uterus was then grasped with an atraumatic grasper. The utero-ovarian ligaments were cauterized and cut. The round ligament and broad ligament was cauterized and cut with the Powerseal. Hemostasis was achieved. The bladder flap was created using the Powerseal with cautery and cut detention across. The uterine arteries on the right side were extensively cauterized with the Powerseal. All of this was repeated on the left side. The remainder of the bladder flap was created using the Powerseal and the bladder taken down off the lower uterine segment and cervix. Using the Linaloop, the cervix was amputated from the uterus 2 cm above the uterosacral ligaments, after the ZUMI uterine manipulator was removed from the uterus. There was a small amount of bleeding noted from the posterior edge of the cervix, and this was cauterized for hemostasis. A sponge stick was placed into the vagina. 6 mL of half percent Marcaine with epinephrine were injected above the pubic symphysis. A 12 mm trocar was placed. An Endobag was placed through the suprapubic trocar and the uterus and tubes were placed into the Endobag. The trocar was removed. The edges of the endobag were brought through the skin. The uterus was grasped with a Joe. The Brodie was placed into the endobag. The uterus was hand morcellated in approximately 10 pieces. The Endobag and Brodie were removed from the peritoneal cavity. The pelvis was copiously irrigated with warm normal saline. No bleeding was noted. The instruments were removed from the abdomen. The CO2 was allowed to escape. The suprapubic incision was closed on the fascia with 0 Vicryl. All of the incisions were closed with 4-0 Biosyn in a subcuticular fashion. Steri strips and Allevyn dressings were placed over the incisions. The moistened sponge stick was removed from the vagina. Sponge, lap, and instrument counts were correct x-2. The patient tolerated the procedure well, was taken to PACU in stable condition. Complications: none Post-operative Condition: stable Disposition: PACU Plan for aftercare: Home after recovery
== END 2022-09-18 16:35 | disposition home or self-care (01) ==
LOC: OR 08:09 → AC 14:17 → OR 16:13
PROVIDERS: PCP Physician Assistant; Referring Provider Obstetrics & Gynecology; Visit Provider Obstetrics & Gynecology
PROC: 0UT94ZL Resection of Uterus, Supracervical, Percutaneous Endoscopic Approach (ICD-10-PCS; CPT 58542; principal; 2022-09-18 09:45)
DX: N93.9 Abnormal uterine and vaginal bleeding, unspecified (principal); Z20.822 Contact with and (suspected) exposure to COVID-19; N83.202 Unspecified ovarian cyst, left side; N83.8 Other noninflammatory disorders of ovary, fallopian tube and broad ligament
CPT/HCPCS: 58542; 87635; C9803; J0131; J0690; J1100; J1885; J2250; J2405; J2704; J2795; J3010

== ENCOUNTER 2024-02-21 17:07 | Emergency (ER) | payer OTHER, SELFPAY ==
[2024-02-21] VITALS (13 sets, daily range): BP systolic 131–177; BP diastolic 73–109; PULSE 67–99; RESP 18; TEMP 36.9; O2SAT 96–100; BMI 41.0
--- NOTE | 2024-02-21 21:56 | ED.BACK ---
HPI - Back Pain/Injury General Chief Complaint: Back Pain/Injury Stated Complaint: Back px Time Seen by Provider: 02/21/24 20:27 History of Present Illness HPI Narrative: 38-year-old female presents by EMS from home for back pain. Patient states that she was cleaning a table when her back tweaked. Took ibuprofen but still had pain and was unable to move so has been called medics. Denies bowel or bladder incontinence, denies numbness, weakness. Related Data Home Medications Medication Instructions Recorded Confirmed fluoxetine 20 mg capsule 20 mg PO DAILY 05/24/22 11/12/22 Previous Rx's Medication Instructions Recorded oxycodone 5 mg tablet 5 mg PO Q4H PRN pain #30 tabs 09/18/22 methocarbamol 500 mg tablet 500 mg PO TID #30 tabs 02/21/24 methylprednisolone 4 mg tablets in See Rx Instructions PO .COMPLEX 02/21/24 a dose pack (Medrol (Champ)) #21 ea Allergies Allergy/AdvReac Type Severity Reaction Status Date / Time sulfamethoxazole Allergy Intermediate hives Verified 02/21/24 17:37 [From Bactrim] trimethoprim [From Bactrim] Allergy Intermediate hives Verified 02/21/24 17:37 Patient History Medical History Anxiety (2016) Depression (2016) Surgical History History of hysteroscopy (05/24/22) Social History household members: spouse and children Smoking Status: Former smoker alcohol intake: current Smoking Status: Former smoker alcohol intake frequency: a few times a month Substance Use Type: does not use Exam Initial Vital Signs Initial Vital Signs: Vital Signs Temperature 98.4 F 02/21/24 17:34 Pulse Rate 99 H 02/21/24 17:34 Respiratory Rate 18 02/21/24 17:34 Blood Pressure 175/109 H 02/21/24 17:34 Pulse Oximetry 99 02/21/24 17:34 Oxygen Delivery Method Room Air 02/21/24 17:34 Const: Awake, alert, no acute distress MSK: No midline tenderness, bilateral lumbar tenderness Skin: Warm, Dry, intact, no rashes Neuro: AO x3, CN II-XII grossly intact, moves all extremities Course Orders Ordered: Discontinued Medications Dexamethasone (Dexamethasone 10 Mg/Ml Vial) 10 mg IV NOW ONE Stop: 02/21/24 21:57 Last Admin: 02/21/24 22:30 Dose: 10 mg Documented By: GERMAN Diazepam (Diazepam 10 Mg/2 Ml Syringe) 2 mg IV NOW ONE Stop: 02/21/24 21:57 Last Admin: 02/21/24 22:35 Dose: 2 mg Documented By: GERMAN Ketorolac Tromethamine (Ketorolac 30 Mg/Ml Vial) 15 mg IV NOW ONE Stop: 02/21/24 21:57 Last Admin: 02/21/24 22:28 Dose: 15 mg Documented By: GERMAN Vital Signs Vital signs: Vital Signs - 8 hr 02/21/24 20:26 02/21/24 20:27 02/21/24 20:27 Pulse Rate 88 88 Blood Pressure 175/106 H Pulse Oximetry 98 97 02/21/24 20:30 02/21/24 20:30 02/21/24 21:00 Pulse Rate 82 Blood Pressure 149/84 H 150/82 H Pulse Oximetry 97 02/21/24 21:00 02/21/24 21:30 02/21/24 21:31 Pulse Rate 74 71 80 Blood Pressure Pulse Oximetry 97 100 100 02/21/24 21:31 02/21/24 22:00 02/21/24 22:01 Pulse Rate 68 Blood Pressure 177/96 H 148/77 H Pulse Oximetry 98 02/21/24 22:01 02/21/24 22:30 02/21/24 22:39 Pulse Rate 72 75 Blood Pressure 164/95 H Pulse Oximetry 97 100 02/21/24 22:39 02/21/24 23:00 02/21/24 23:01 Pulse Rate 79 69 67 Blood Pressure Pulse Oximetry 99 96 99 02/21/24 23:01 Pulse Rate Blood Pressure 131/73 Pulse Oximetry MDM - Back Pain/Injury MDM Narrative Medical decision making narrative: Lumbar back pain/strain. No signs or symptoms of cauda equina. Atraumatic, no midline tenderness, no indication for imaging at this time. Patient given medications for pain with improvement in symptoms. Discharge Plan Departure Patient Disposition: Home Clinical Impression: Acute lumbar back pain Instructions: DI for Back Strain or Sprain Activity Restrictions/Additional Instructions: Continue to take Tylenol and ibuprofen as needed for pain. The steroid pack may help your back pain improve. Follow up with your primary care doctor. Prescriptions: New methocarbamol 500 mg tablet 500 mg PO TID Qty: 30 0RF methylprednisolone [Medrol (Champ)] 4 mg tablets,dose pack See Rx Instructions .ROUTE .COMPLEX Qty: 21 0RF Rx Instructions: orally per package directions No Action fluoxetine 20 mg capsule 20 mg PO DAILY oxycodone 5 mg tablet 5 mg PO Q4H PRN (Reason: pain) Qty: 30 0RF Referrals: Zonia Potter PA-C [Primary Care Provider] - Stand Alone Forms: Patient Portal/API
[2024-02-21] MEDS: KETOROLAC 30 MG/ML VIAL 15 MG IV (22:28)
[2024-02-21] MEDS: DEXAMETHASONE 10 MG/ML VIAL IV (22:30)
[2024-02-21] MEDS: diazePAM 10 MG/2 ML SYRINGE 2 MG IV (22:35)
--- NOTE | 2024-02-21 22:55 | PC.NURSE ---
Pt wanting to ambulate to see if she felt good enough to go home. Pt able to stand and walk on her own around the room stating that her pain is significantly better. Pt requesting to be discharged.
== END 2024-02-21 23:23 | disposition home or self-care (01) ==
PROVIDERS: Emergency Provider Emergency Medicine; PCP Physician Assistant
DX: M54.50 Low back pain, unspecified (principal); X50.1XXA Overexertion from prolonged static or awkward postures, initial encounter
CPT/HCPCS: 96374; 96375; 99283; 99284; J1100; J1885; J3360